=== PATIENT | female | born 1975 | race Caucasian/White ===

== ENCOUNTER 2025-06-21 16:54 | Emergency (ER) | payer OTHER ==
[~2025-06-21] VITALS: Ht 160 cm; Wt 77.0 kg
[2025-06-21 17:10] VITALS: BP 120/70; PULSE 77; RESP 18; TEMP 98.2; O2SAT 100
[2025-06-21] MEDS: AMOX TR/POT CLAV 875 MG/125 MG TABLET PO ONE (17:37)
[2025-06-21] MEDS: BACITRACIN 0.9 GM PACKET OINTMENT TP ONE (17:37)
[2025-06-21] MEDS: IBUPROFEN 600 MG TABLET PO ONE (17:37)
[2025-06-21] MEDS ORDERED: IBUP-1492 PO (18:05)
[2025-06-21] MEDS ORDERED: AMOX-457 PO (18:05)
== END 2025-06-21 18:19 | disposition home or self-care (01) ==
LOC: EMS 16:54
DX: S41.152A Open bite of left upper arm, initial encounter (principal); W54.0XXA Bitten by dog, initial encounter; Y93.89 Activity, other specified; Y92.89 Other specified places as the place of occurrence of the external cause; Y99.8 Other external cause status
CPT/HCPCS: 99284; Z7502; Z7610